=== PATIENT | female | born 1980 | race Hispanic/Latino ===

== ENCOUNTER 2017-11-12 11:45 | Inpatient (IN) | payer OTHER ==
[~2017-11-12] VITALS: Ht 157.5 cm; Wt 105.4 kg
[2017-11-12 13:14] LABS: BASOPHILS % (AUTO) 0.7 % (0.0-5.0); EOSINOPHILS % (AUTO) 1.4 % (0.0-8.0); HEMATOCRIT 37.3 % (36-48); LYMPHOCYTES % (AUTO) 15.9 % (21.0-51.0); MEAN CORPUSCULAR HEMOGLOBIN 25.6 pg (27.0-33.0); MEAN CORPUSCULAR HGB CONC 33.4 g/dL (32.0-36.0); MEAN CORPUSCULAR VOLUME 76.7 fL (79-99); MONOCYTES % (AUTO) 6.7 % (3.0-13.0); NEUTROPHILS % (AUTO) 75.3 % (40.0-77.0); PLATELET COUNT (AUTO) 328 K/uL (130-400); RED BLOOD CELL COUNT(AUTO) 4.86 MIL/uL (4.00-5.50); RED CELL DISTRIBUTION WIDTH 15.3 % (11.0-15.5); WHITE BLOOD COUNT (AUTO) 8.8 K/uL (4.8-10.8)
[2017-11-12 13:30] VITALS: BP 133/78
[2017-11-12] MEDS ORDERED: SERT50TA PO (14:05)
[2017-11-12] MEDS ORDERED: LACTATED RINGERS 1000ML 1,000 ML IV SCH (14:15)
[2017-11-12] MEDS ORDERED: CEFAZOLIN 3GM /D5W 100ML 100 ML IV SCH (14:15)
[2017-11-15] VITALS (22 sets, daily range): BP systolic 111–163; BP diastolic 70–92
[2017-11-15] MEDS ORDERED: CLINDAMYCIN 600 MG/D5% WATER 50 ML IV ONE (07:16)
[2017-11-15] MEDS ORDERED: LIDOCAINE PF 2% 5ML ABBOJECT ONE (07:49)
[2017-11-15] MEDS ORDERED: NEOSTIGMINE 5MG/5ML SYR IV ONE (07:49)
[2017-11-15] MEDS ORDERED: GLYCOPYRROLATE 0.2 MG/ML 5 ML VIAL ONE (07:49)
[2017-11-15] MEDS ORDERED: ONDANSETRON HCL 4 MG/2 ML VIAL ONE (07:49)
[2017-11-15] MEDS ORDERED: DEXAMETHASONE SOD PHOSPHATE 10MG/ML 1ML VIAL ONE (07:49)
[2017-11-15] MEDS ORDERED: FENTANYL CITRATE PF 50 MCG/1 ML 2ML VIAL ONE ×3 (07:50→10:33)
[2017-11-15] MEDS ORDERED: PROPOFOL 10 MG/ML 20ML VIAL IV ONE (07:50)
[2017-11-15] MEDS ORDERED: MIDAZOLAM HCL 1 MG/ML 2ML VIAL ONE (07:51)
[2017-11-15] MEDS ORDERED: MEPERIDINE-PF 25 MG/ML SYG ONE ×2 (10:00→10:15)
[2017-11-15] MEDS ORDERED: PROMETHAZINE HCL 25 MG/ML 1ML AMPULE IM ONE (10:14)
[2017-11-15] MEDS ORDERED: PROMETHAZINE HCL 25 MG/ML 1ML AMPULE IM PRN (11:15)
[2017-11-15] MEDS ORDERED: BISACODYL 10 MG SUPP.RECT RC PRN (11:15)
[2017-11-15] MEDS ORDERED: SIMETHICONE 80 MG TAB.CHEW PO PRN (11:15)
[2017-11-15] MEDS: DEXTROSE 5%-LACTATED RINGERS 1,000 ML IV PRN ×2 (12:06→19:05)
[2017-11-15] MEDS: PROMETHAZINE HCL 25 MG/ML 1ML AMPULE IM PRN ×3 (13:02→20:41)
[2017-11-15] MEDS: MEPERIDINE-PF 75 MG/ML SYG IM PRN ×3 (13:05→20:42)
[2017-11-16] MEDS: PROMETHAZINE HCL 25 MG/ML 1ML AMPULE IM PRN (01:33)
[2017-11-16] MEDS: MEPERIDINE-PF 75 MG/ML SYG IM PRN (01:34)
[2017-11-16] MEDS: DEXTROSE 5%-LACTATED RINGERS 1,000 ML IV PRN (01:43)
[2017-11-16 03:56] VITALS: BP 122/71
[2017-11-16 06:53] LABS: HEMATOCRIT 33.8 % (36-48); MEAN CORPUSCULAR HEMOGLOBIN 24.9 pg (27.0-33.0); MEAN CORPUSCULAR VOLUME 75.3 fL (79-99); PLATELET COUNT (AUTO) 318 K/uL (130-400); RED BLOOD CELL COUNT(AUTO) 4.49 MIL/uL (4.00-5.50); WHITE BLOOD COUNT (AUTO) 11.8 K/uL (4.8-10.8)
[2017-11-16] MEDS: ACETAMINOPHEN-CODEINE 300/30MG TAB PO PRN ×4 (06:56→18:48)
[2017-11-16 07:32] VITALS: BP 139/73
[2017-11-16] MEDS: DOCUSATE SODIUM 100 MG CAP PO PRN ×2 (08:02→20:55)
[2017-11-16] MEDS: SIMETHICONE 80 MG TAB.CHEW PO PRN ×3 (08:03→20:55)
[2017-11-16] MEDS: IBUPROFEN 800 MG TAB PO SCH ×2 (11:02→18:45)
[2017-11-16 11:28] VITALS: BP 129/77
[2017-11-16 16:00] VITALS: BP 141/83
[2017-11-16 19:40] VITALS: BP 116/55
[2017-11-16 23:30] VITALS: BP 107/51
[2017-11-17] MEDS: ACETAMINOPHEN-CODEINE 300/30MG TAB PO PRN ×2 (00:56→08:01)
[2017-11-17] MEDS: IBUPROFEN 800 MG TAB PO SCH ×2 (03:04→11:01)
[2017-11-17 04:00] VITALS: BP 110/55
[2017-11-17 07:50] VITALS: BP 127/72
[2017-11-17] MEDS: DOCUSATE SODIUM 100 MG CAP PO PRN (08:00)
[2017-11-17] MEDS: SIMETHICONE 80 MG TAB.CHEW PO PRN (08:09)
[2017-11-17 11:15] VITALS: BP 132/80
== END 2017-11-17 11:15 | disposition home or self-care (01) | DRG 742 ==
LOC: EDSTATUS 11:45 → DAHIP 11-15 06:27 → WSH 11-15 11:00
PROVIDERS: ADMIT Obstetrics & Gynecology; ATTEND Obstetrics & Gynecology
PROC: 0UT90ZZ Resection of Uterus, Open Approach (ICD-10-PCS; principal; 2017-11-15 07:48)
DX: N92.0 Excessive and frequent menstruation with regular cycle (principal); Z68.41 Body mass index [BMI] 40.0-44.9, adult; F41.9 Anxiety disorder, unspecified; E66.01 Morbid (severe) obesity due to excess calories; Z90.49 Acquired absence of other specified parts of digestive tract; Z90.89 Acquired absence of other organs; Z83.3 Family history of diabetes mellitus; Z82.49 Family history of ischemic heart disease and other diseases of the circulatory system; Z80.0 Family history of malignant neoplasm of digestive organs
CPT/HCPCS: 36415; 84703; 85025; 85027; 86850; 86900; 86901; 88305; 88307; A4344; J0690; J1100; J2001; J2175; J2250; J2405; J2550; J2704; J2710; J3010; J3490; J7030; J7120

== ENCOUNTER 2017-11-21 15:01 | Emergency (ER) | payer OTHER ==
[~2017-11-21 15:01] MED LIST: SERT50TA PO
== END 2017-11-21 16:51 | disposition home or self-care (01) ==
LOC: EDH 15:01
DX: S39.011A Strain of muscle, fascia and tendon of abdomen, initial encounter (principal); Z90.49 Acquired absence of other specified parts of digestive tract; Z90.710 Acquired absence of both cervix and uterus; Z88.0 Allergy status to penicillin; W18.39XA Other fall on same level, initial encounter; Y93.89 Activity, other specified; Y92.89 Other specified places as the place of occurrence of the external cause; Y99.8 Other external cause status
CPT/HCPCS: 76700

== ENCOUNTER 2022-05-16 12:23 | Emergency (ER) | payer OTHER ==
[~2022-05-16] VITALS: Ht 152.4 cm; Wt 119.7 kg
[2022-05-16 12:49] LABS: BASOPHILS % (AUTO) 0.9 % (0.0-5.0); EOSINOPHILS % (AUTO) 2.6 % (0.0-8.0); LYMPHOCYTES % (AUTO) 23.5 % (21.0-51.0); MEAN CORPUSCULAR HEMOGLOBIN 30.5 pg (27.0-33.0); MEAN CORPUSCULAR HGB CONC 34.1 g/dL (32.0-36.0); MEAN CORPUSCULAR VOLUME 89.4 fL (79-99); MONOCYTES % (AUTO) 7.2 % (3.0-13.0); NEUTROPHILS % (AUTO) 63.7 % (40.0-77.0); PLATELET COUNT (AUTO) 289 K/uL (130-400); RED BLOOD CELL COUNT(AUTO) 4.92 MIL/uL (4.00-5.50); RED CELL DISTRIBUTION WIDTH 12.7 % (11.0-15.5); WHITE BLOOD COUNT (AUTO) 8.9 K/uL (4.8-10.8)
[2022-05-16 12:59] LABS: CREATININE 0.8 mg/dL (0.5-1.5); POTASSIUM 3.9 mmol/L (3.5-5.1)
[2022-05-16 13:00] LABS: INR 0.93 (0.85-1.15)
[2022-05-16 13:01] LABS: PARTIAL THROMBOPLASTIN TIME 29.4 SEC (26.3-35.5)
[2022-05-16 13:09] LABS: ALBUMIN 4.1 g/dL (3.5-5.0); TOTAL PROTEIN, SERUM 8.2 g/dL (6.0-8.3)
[2022-05-16 13:10] LABS: APPEARANCE,URINE CLOUDY (CLEAR); BILIRUBIN,URINE NEGATIVE (NEGATIVE); COLOR,URINE LIGHT-YELLOW (YELLOW); GLUCOSE, URINE (UA) NEGATIVE (NEGATIVE); KETONES,URINE NEGATIVE (NEGATIVE); LEUKOCYTE ESTERASE ,URINE NEGATIVE Leu/uL (NEGATIVE); NITRATE,URINE NEGATIVE (NEGATIVE); OCCULT BLOOD,URINE NEGATIVE (NEGATIVE); PH,URINE 7.5 (5.0-8.0); PROTEIN,URINE NEGATIVE (NEGATIVE); UROBILINOGEN,URINE 0.2 mg/dL (0.2-1.0)
[2022-05-16 13:14] LABS: B-TYPE NATRIURETIC PEPTIDE 11 pg/mL (0-100)
[2022-05-16 13:20] LABS: BACTERIA,URINE RARE /HPF (None Seen); MUCUS,URINE RARE LPF (None Seen); SQUAMOUS EPITHELIAL CELL,UR RARE /HPF (0-2)
[2022-05-16] MEDS ORDERED: IOHEXOL 350 MG/ML 100ML INFUS..BTL IV ONE (13:24)
[2022-05-16] MEDS ORDERED: SOLU-MEDROL 40MG VIAL IVP ONE (14:00)
[2022-05-16] MEDS ORDERED: DiphenhydrAMINE HCL 50 MG/ML VIAL IV ONE (14:00)
[2022-05-16 15:15] VITALS: BP 122/55
[2022-05-17] MEDS ORDERED: PRED5TAB PO (08:21)
== END 2022-05-16 15:43 | disposition home or self-care (01) ==
LOC: EDH 12:23
DX: G43.109 Migraine with aura, not intractable, without status migrainosus (principal); J45.909 Unspecified asthma, uncomplicated; Z90.49 Acquired absence of other specified parts of digestive tract; Z79.52 Long term (current) use of systemic steroids; Z79.82 Long term (current) use of aspirin; Z90.89 Acquired absence of other organs
CPT/HCPCS: 99285; 70496; 96374; 87635; 96375; 82550; 83721; 84484; 80053; 83880; 85025; 85610; 85730; 81001; 81025; 36415; 70498; 93005; 70450; C9803; J1200; J2920; Q9967

== ENCOUNTER 2022-05-17 07:59 | Emergency (ER) | payer OTHER ==
[~2022-05-17] VITALS: Ht 152.4 cm; Wt 127.9 kg
[2022-05-17 08:00] VITALS: BP 158/105
[2022-05-17] MEDS ORDERED: PRED5TAB PO (08:21)
== END 2022-05-17 08:34 | disposition home or self-care (01) ==
LOC: EDH 07:59
DX: G43.109 Migraine with aura, not intractable, without status migrainosus (principal); G51.0 Bell's palsy; J45.909 Unspecified asthma, uncomplicated; Z90.49 Acquired absence of other specified parts of digestive tract; Z90.710 Acquired absence of both cervix and uterus; Z79.899 Other long term (current) drug therapy

== ENCOUNTER → 2024-07-14 | Outpatient (CLI) | payer OTHER ==
[~2024-07-14] MED LIST changes: +PRED5TAB PO
== END | disposition home or self-care (01) ==
LOC: RAH 11:05
PROVIDERS: ATTEND Internal Medicine
DX: Z12.31 Encounter for screening mammogram for malignant neoplasm of breast (principal)
CPT/HCPCS: 77067